=== PATIENT | male | born 1970 | race Hispanic/Latino ===

== ENCOUNTER 2017-09-13 08:30 | Observation (INO) | payer OTHER, SELFPAY ==
[~2017-09-13] VITALS: Ht 157.5 cm; Wt 68.7 kg
[2017-09-13 09:06] LABS: BASOPHILS % (AUTO) 0.4 % (0.0-5.0); EOSINOPHILS % (AUTO) 0.9 % (0.0-8.0); HEMATOCRIT 46.3 % (42-54); LYMPHOCYTES % (AUTO) 10.2 % (21.0-51.0); MEAN CORPUSCULAR HEMOGLOBIN 31.6 pg (27.0-33.0); MEAN CORPUSCULAR HGB CONC 33.8 g/dL (32.0-36.0); MEAN CORPUSCULAR VOLUME 93.6 fL (79-99); MONOCYTES % (AUTO) 7.8 % (3.0-13.0); NEUTROPHILS % (AUTO) 80.7 % (40.0-77.0); PLATELET COUNT (AUTO) 341 K/uL (130-400); RED BLOOD CELL COUNT(AUTO) 4.95 MIL/uL (4.50-6.20); RED CELL DISTRIBUTION WIDTH 13.3 % (11.0-15.5); WHITE BLOOD COUNT (AUTO) 11.6 K/uL (4.8-10.8)
[2017-09-13] MEDS ORDERED: ASPIRIN 325 MG TABLET ONE (09:20)
[2017-09-13] MEDS ORDERED: NITROGLYCERIN 1GM/1 INCH PACKET TD ONE (09:21)
[2017-09-13 09:25] LABS: CREATININE 0.8 mg/dL (0.5-1.5); INR 0.95 (0.85-1.15); PARTIAL THROMBOPLASTIN TIME 24.5 SEC (26.3-35.5); POTASSIUM 4.1 mmol/L (3.5-5.1)
[2017-09-13 09:40] LABS: ALBUMIN 2.9 g/dL (3.5-5.0); BILIRUBIN,TOTAL 0.7 mg/dL (0.2-1.0); CREATINE KINASE MB 1.9 ng/mL (0.5-3.6); TOTAL PROTEIN, SERUM 6.1 g/dL (6.0-8.3)
[2017-09-13 11:27] LABS: APPEARANCE,URINE Clear (CLEAR); BILIRUBIN,URINE Negative (NEGATIVE); COLOR,URINE Yellow (YELLOW); GLUCOSE, URINE (UA) Negative (NEGATIVE); KETONES,URINE Trace mg/dL (NEGATIVE); LEUKOCYTE ESTERASE ,URINE Negative (NEGATIVE); NITRATE,URINE Negative (NEGATIVE); OCCULT BLOOD,URINE Negative (NEGATIVE); PROTEIN,URINE Negative (NEGATIVE); UROBILINOGEN,URINE 0.2 mg/dL (0.2-1.0)
[2017-09-13 11:37] LABS: BACTERIA,URINE Rare /HPF (None Seen); HYALINE CASTS, URINE 0-1 /LPF (0-1 /LPF); MUCUS,URINE Rare LPF (None Seen); RBC,URINE 0-1 /HPF (0-1); SQUAMOUS EPITHELIAL CELL,UR Rare /LPF (0-2); WBC,URINE 0-1 /HPF (0-1)
[2017-09-13 13:37] LABS: AMPHET/METH SCREEN,URINE NEGATIVE (NEGATIVE); BARBITURATE SCREEN, URINE NEGATIVE (NEGATIVE); BENZODIAZEPINES SCREEN,URINE NEGATIVE (NEGATIVE); CANNABINOID SCREEN,URINE NEGATIVE (NEGATIVE); COCAINE SCREEN,URINE POSITIVE (NEGATIVE); OPIATE SCREEN,URINE NEGATIVE (NEGATIVE); PHENCYCLIDINE SCREEN,URINE NEGATIVE (NEGATIVE)
[2017-09-13 20:25] LABS: CREATINE KINASE MB 2.4 ng/mL (0.5-3.6)
[2017-09-13 20:48] LABS: TROPONIN I 0.62 ng/mL (0.00-0.06)
[2017-09-13] MEDS ORDERED: FAMOTIDINE 20MG TAB 20 MG TAB ONE (23:17)
[2017-09-14] MEDS ORDERED: ACETAMINOPHEN 325 MG TAB PO PRN (01:00)
[2017-09-14] MEDS ORDERED: HYDRALAZINE HCL 20 MG/ML VIAL IV PRN (01:00)
[2017-09-14] MEDS: NITROGLYCERIN 1GM/1 INCH PACKET TD SCH ×3 (01:00→17:21)
[2017-09-14] MEDS ORDERED: ONDANSETRON HCL 4 MG/2 ML VIAL IV PRN (01:00)
[2017-09-14] MEDS ORDERED: NITROGLYCERIN 1GM/1 INCH PACKET TD ONE ×2 (01:38→12:42)
[2017-09-14 06:44] LABS: BASOPHILS % (AUTO) 0.5 % (0.0-5.0); EOSINOPHILS % (AUTO) 1.4 % (0.0-8.0); HEMATOCRIT 42.9 % (42-54); MEAN CORPUSCULAR HGB CONC 34.1 g/dL (32.0-36.0); MEAN CORPUSCULAR VOLUME 93.8 fL (79-99); MONOCYTES % (AUTO) 9.1 % (3.0-13.0); NUCLEATED RED BLOOD CELLS 0.1 % (0.0-0.19); PLATELET COUNT (AUTO) 381 K/uL (130-400); RED BLOOD CELL COUNT(AUTO) 4.58 MIL/uL (4.50-6.20); RED CELL DISTRIBUTION WIDTH 13.6 % (11.0-15.5); WHITE BLOOD COUNT (AUTO) 8.9 K/uL (4.8-10.8)
[2017-09-14 07:11] LABS: CREATINE KINASE MB 1.9 ng/mL (0.5-3.6); CREATININE 0.8 mg/dL (0.5-1.5); POTASSIUM 3.7 mmol/L (3.5-5.1); TROPONIN I 0.24 ng/mL (0.00-0.06)
[2017-09-14] MEDS: ASPIRIN 325 MG TABLET PO SCH (09:00)
[2017-09-14] MEDS: ENOXAPARIN SODIUM 30 MG/0.3 ML SQ SCH (09:00)
[2017-09-14] MEDS: FAMOTIDINE 20MG TAB 20 MG TAB PO SCH ×2 (09:00→21:59)
[2017-09-14] MEDS ORDERED: ASPIRIN 325 MG TABLET ONE (09:16)
[2017-09-14] MEDS ORDERED: ENOXAPARIN SODIUM 30 MG/0.3 ML SQ ONE (09:16)
[2017-09-14] MEDS ORDERED: FAMOTIDINE 20MG TAB 20 MG TAB ONE (09:17)
[2017-09-14 14:11] VITALS: BP 132/82
[2017-09-14 14:30] VITALS: BP 147/95
[2017-09-14 16:00] VITALS: BP 131/82
[2017-09-14 19:35] VITALS: BP 136/91
[2017-09-14 23:24] VITALS: BP 138/85
[2017-09-15] MEDS: NITROGLYCERIN 1GM/1 INCH PACKET TD SCH ×2 (01:08→08:24)
[2017-09-15 04:00] VITALS: BP 136/85
[2017-09-15 06:47] LABS: CREATINE KINASE MB 0.9 ng/mL (0.5-3.6); TROPONIN I 0.13 ng/mL (0.00-0.06)
[2017-09-15 07:00] VITALS: BP 139/90
[2017-09-15] MEDS: ASPIRIN 325 MG TABLET PO SCH (08:21)
[2017-09-15] MEDS: FAMOTIDINE 20MG TAB 20 MG TAB PO SCH (08:21)
[2017-09-15] MEDS: ENOXAPARIN SODIUM 30 MG/0.3 ML SQ SCH (08:22)
[2017-09-15 11:00] VITALS: BP 129/81
[2017-09-15] MEDS ORDERED: METO25TA6 PO (15:56)
== END 2017-09-15 17:43 | disposition home or self-care (01) ==
LOC: EDH 08:30 → EDHIP 08:31 → 2DH 09-14 14:15
PROVIDERS: ADMIT Family Medicine; ATTEND Family Medicine
DX: R07.89 Other chest pain (principal); F14.10 Cocaine abuse, uncomplicated; Z79.82 Long term (current) use of aspirin; Z79.899 Other long term (current) drug therapy
CPT/HCPCS: 36415 ×3; 80048; 80053; 80305; 81001; 82550 ×4; 82553 ×4; 83874 ×3; 84484 ×5; 85025 ×2; 85610; 85730; 93005 ×2; 93306; 96372; 99285; G0378 ×57; J1650 ×2

== ENCOUNTER 2019-11-08 09:05 | Emergency (ER) | payer OTHER, SELFPAY ==
[~2019-11-08 09:05] MED LIST: METO25TA6 PO
== END 2019-11-08 10:31 | disposition home or self-care (01) ==
LOC: EDH 09:05
DX: R19.7 Diarrhea, unspecified (principal); Z72.0 Tobacco use
CPT/HCPCS: 87804

== ENCOUNTER 2020-09-12 10:42 | Inpatient (IN) | payer SELFPAY ==
[~2020-09-12] VITALS: Ht 157.5 cm; Wt 65.8 kg
[2020-09-12] MEDS ORDERED: ASPIRIN 81MG CHEW TAB ONE (10:51)
[2020-09-12 11:04] LABS: BASOPHILS % (AUTO) 0.5 % (0.0-5.0); HEMATOCRIT 45.7 % (42-54); MEAN CORPUSCULAR HEMOGLOBIN 31.2 pg (27.0-33.0); MEAN CORPUSCULAR HGB CONC 34.1 g/dL (32.0-36.0); MEAN CORPUSCULAR VOLUME 91.4 fL (79-99); MONOCYTES % (AUTO) 8.2 % (3.0-13.0); NEUTROPHILS % (AUTO) 81.7 % (40.0-77.0); PLATELET COUNT (AUTO) 424 K/uL (130-400); RED CELL DISTRIBUTION WIDTH 12.7 % (11.0-15.5); WHITE BLOOD COUNT (AUTO) 14.6 K/uL (4.8-10.8)
[2020-09-12 11:17] LABS: CREATININE 0.8 mg/dL (0.5-1.5); POTASSIUM 4.1 mmol/L (3.5-5.1)
[2020-09-12 11:22] LABS: ALBUMIN 3.2 g/dL (3.5-5.0); BILIRUBIN,TOTAL 0.4 mg/dL (0.2-1.0); TOTAL PROTEIN, SERUM 6.7 g/dL (6.0-8.3)
[2020-09-12 11:29] LABS: B-TYPE NATRIURETIC PEPTIDE 49 pg/mL (0-100)
[2020-09-12 11:55] LABS: INR 0.99 (0.85-1.15); PROTHROMBIN TIME 10.6 SEC (9.6-11.6)
[2020-09-12 11:57] LABS: AMPHET/METH SCREEN,URINE NEGATIVE (NEGATIVE); BARBITURATE SCREEN, URINE NEGATIVE (NEGATIVE); BENZODIAZEPINES SCREEN,URINE NEGATIVE (NEGATIVE); CANNABINOID SCREEN,URINE NEGATIVE (NEGATIVE); COCAINE SCREEN,URINE POSITIVE (NEGATIVE); OPIATE SCREEN,URINE NEGATIVE (NEGATIVE); PHENCYCLIDINE SCREEN,URINE NEGATIVE (NEGATIVE)
[2020-09-12] MEDS: NITROGLYCERIN PATCH 0.2 MG/HR TD SCH (13:15)
[2020-09-12] MEDS ORDERED: ACETAMINOPHEN WITH CODEINE 1 TAB TAB PO PRN (13:15)
[2020-09-12] MEDS ORDERED: AMLODIPINE 5 MG TAB PO SCH (13:15)
[2020-09-12 13:21] LABS: HEMOGLOBIN A1C 8.2 % (4.0-6.0)
[2020-09-12 13:26] LABS: THYROID STIMULATING HORMONE 0.52 uIU/mL (0.36-3.74)
[2020-09-12 13:33] LABS: MAGNESIUM 1.9 mg/dL (1.80-2.40)
[2020-09-12] MEDS: NIFEDIPINE ER 30 MG TAB PO SCH (14:15)
[2020-09-12] MEDS ORDERED: AMLODIPINE 5 MG TAB ONE (15:37)
[2020-09-12] MEDS: FAMOTIDINE 20MG TAB PO SCH (21:00)
[2020-09-12] MEDS: CARVEDILOL 3.125 MG TABLET PO SCH (21:00)
[2020-09-12] MEDS ORDERED: CARVEDILOL 3.125 MG TABLET PO ONE (21:04)
[2020-09-12] MEDS ORDERED: FAMOTIDINE 20MG TAB ONE (21:04)
[2020-09-13 04:28] VITALS: BP 132/85
[2020-09-13] MEDS ORDERED: 0.9%NACL 1000ML 1,000 ML IV SCH (05:15)
[2020-09-13] MEDS ORDERED: CHLORDIAZEPOXIDE HCL 25 MG CAP PO PRN (05:15)
[2020-09-13] MEDS ORDERED: PHARMACY COMMUNICATION MISC PRN (05:15)
[2020-09-13 05:38] LABS: BASOPHILS % (AUTO) 0.6 % (0.0-5.0); EOSINOPHILS % (AUTO) 2.5 % (0.0-8.0); LYMPHOCYTES % (AUTO) 13.1 % (21.0-51.0); MEAN CORPUSCULAR HEMOGLOBIN 30.4 pg (27.0-33.0); MEAN CORPUSCULAR HGB CONC 33.3 g/dL (32.0-36.0); MEAN CORPUSCULAR VOLUME 91.5 fL (79-99); MONOCYTES % (AUTO) 8.8 % (3.0-13.0); NEUTROPHILS % (AUTO) 74.1 % (40.0-77.0); PLATELET COUNT (AUTO) 397 K/uL (130-400); RED CELL DISTRIBUTION WIDTH 12.6 % (11.0-15.5); WHITE BLOOD COUNT (AUTO) 10.1 K/uL (4.8-10.8)
[2020-09-13 05:50] LABS: CREATININE 0.8 mg/dL (0.5-1.5); MAGNESIUM 2.1 mg/dL (1.80-2.40)
[2020-09-13] MEDS: THIAMINE HCL 100 MG TABLET PO SCH (06:12)
[2020-09-13 08:00] VITALS: BP 130/78
[2020-09-13] MEDS ORDERED: AMLODIPINE 5 MG TAB PO SCH (09:00)
[2020-09-13] MEDS: NIFEDIPINE ER 30 MG TAB PO SCH (09:36)
[2020-09-13] MEDS: ASPIRIN 81MG CHEW TAB PO SCH (09:36)
[2020-09-13] MEDS: FOLIC ACID 1 MG TABLET PO SCH (09:36)
[2020-09-13] MEDS: CARVEDILOL 3.125 MG TABLET PO SCH ×2 (09:37→20:25)
[2020-09-13] MEDS: FAMOTIDINE 20MG TAB PO SCH ×2 (09:37→20:25)
[2020-09-13] MEDS: ENOXAPARIN SODIUM 40 MG/0.4 ML SYRINGE SQ SCH (09:38)
[2020-09-13 12:00] VITALS: BP 118/71
[2020-09-13 16:00] VITALS: BP 105/69
[2020-09-13] MEDS: NITROGLYCERIN PATCH 0.2 MG/HR TD SCH (18:57)
[2020-09-13 19:37] VITALS: BP 113/72
[2020-09-13 20:54] LABS: APPEARANCE,URINE Clear (CLEAR); BILIRUBIN,URINE Negative (NEGATIVE); COLOR,URINE Yellow (YELLOW); GLUCOSE, URINE (UA) Negative (NEGATIVE); KETONES,URINE Negative (NEGATIVE); LEUKOCYTE ESTERASE ,URINE Negative (NEGATIVE); NITRATE,URINE Negative (NEGATIVE); OCCULT BLOOD,URINE Negative (NEGATIVE); PROTEIN,URINE Negative (NEGATIVE)
[2020-09-13 23:39] VITALS: BP 97/65
[2020-09-14 03:44] VITALS: BP 113/66
[2020-09-14] MEDS: THIAMINE HCL 100 MG TABLET PO SCH ×2 (05:15→08:51)
[2020-09-14] MEDS ORDERED: ASPI-1197 PO (06:08)
[2020-09-14] MEDS ORDERED: NITR0.4T50 SL (06:08)
[2020-09-14] MEDS ORDERED: NIFE30TA98 PO (06:08)
[2020-09-14] MEDS ORDERED: CARV3.12 PO (06:08)
[2020-09-14 07:54] VITALS: BP 125/78
[2020-09-14] MEDS: NITROGLYCERIN PATCH 0.2 MG/HR TD SCH (08:51)
[2020-09-14] MEDS: NIFEDIPINE ER 30 MG TAB PO SCH (09:16)
[2020-09-14] MEDS: CARVEDILOL 3.125 MG TABLET PO SCH (09:16)
[2020-09-14] MEDS: FAMOTIDINE 20MG TAB PO SCH (09:16)
[2020-09-14] MEDS: FOLIC ACID 1 MG TABLET PO SCH (09:16)
[2020-09-14] MEDS: ASPIRIN 81MG CHEW TAB PO SCH (09:17)
[2020-09-14] MEDS: ENOXAPARIN SODIUM 40 MG/0.4 ML SYRINGE SQ SCH (09:17)
[2020-09-14 11:19] VITALS: BP 115/71
== END 2020-09-14 13:00 | disposition home or self-care (01) | DRG 313 ==
LOC: EDH 10:42 → EDHIP 10:43 → OBSVTOIN 10:43 → 4CH 09-13 04:33
PROVIDERS: ADMIT Internal Medicine; ATTEND Internal Medicine
DX: R07.9 Chest pain, unspecified (principal); I42.8 Other cardiomyopathies; F14.10 Cocaine abuse, uncomplicated; I10 Essential (primary) hypertension; Z20.822 Contact with and (suspected) exposure to COVID-19; F17.210 Nicotine dependence, cigarettes, uncomplicated; D72.829 Elevated white blood cell count, unspecified; I25.10 Atherosclerotic heart disease of native coronary artery without angina pectoris; Z91.14 Patient's other noncompliance with medication regimen; Z83.6 Family history of other diseases of the respiratory system; Z83.3 Family history of diabetes mellitus; Z82.49 Family history of ischemic heart disease and other diseases of the circulatory system
CPT/HCPCS: 36415; 71045; 80048; 80053; 80061; 80305; 81003; 82550; 83036; 83735; 83880; 84145; 84443; 84484; 85025; 85610; 85730; 87426; 93005; 93306; 93356; G0378; J1650; J7030; U0003